=== PATIENT | male | born 2000 | race Caucasian/White ===

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

== ENCOUNTER → 2018-12-29 14:21 | Outpatient (CLI) | payer BC, SELFPAY ==
--- NOTE | 2018-12-29 14:28 | XR_ITS ---
XR knee RT 3V HISTORY: Knee pain and swelling ITS.REASON: CELLUITIS ORDERING PHYSICIAN: Agnieszka Blanton MD PATIENT AGE: 18 years COMPARISON: None FINDINGS: No fracture or dislocation. No lytic or blastic change. Normal mineralization. No significant arthritic changes evident. Mild soft tissue swelling is present in the prepatellar region inferiorly. No foreign body or other significant anomalies are evident. IMPRESSION: Mild soft tissue swelling in the prepatellar region inferiorly otherwise negative
== END ==
PROVIDERS: PCP Family Medicine; Visit Provider Emergency Medicine
DX: L03.115 Cellulitis of right lower limb (principal)
CPT/HCPCS: 73562

== ENCOUNTER 2020-09-04 12:06 | Emergency (ER) | payer BC, SELFPAY ==
[2020-09-04 12:10] VITALS: BP 136/91; PULSE 89; RESP 20; TEMP 36.2; O2SAT 98; BMI 23.6
--- NOTE | 2020-09-04 12:30 | HMH.EDUTC ---
[facility] [place] Clinical Impression: Sinusitis Qualifiers: Sinusitis location: unspecified location Chronicity: unspecified Qualified Code(s): J32.9 - Chronic sinusitis, unspecified Disposition: Home, Self-Care Condition on Discharge: Good Instructions: Sore Throat, Sinusitis, DI for Nausea -- Adult, DI for COVID-19 (Suspected or Confirmed ) Additional Instructions: *Monitor Temp, Over the counter Motrin or Tylenol as directed/as needed Tylenol every 4 hours and Motrin every 6 hours (as long as your family doctor has told you that you can take it) for fever or pain. and straight to ER if unable to lower temp less than 101.0 after medication given *Warm salt water gargles may help to soothe the throat *Throat Lozenges *Warm fluids like tea with honey may help to soothe the throat *Sleep elevated *Humidifier/Vaporizer Follow up immediately if any complications or reactions to medications Your throat swab was sent for culture. Those results are typically sent to your primary care. Be sure to follow up in 2-3 days with your family doctor/primary care physician if no improvement so they can review those result and treat if necessary. If you don?t have a primary care doctor, I recommend you get one but in the mean time, you will have to return to a walk in clinic Follow up IMMEDIATELY for new or worsening symptoms or no Noticeable improvement over the next 48-72 hours. 911 for difficulty breathing or swallowing You were tested for today for COVID19 your test result should be back in the next 24-48 hours, you may call to the [facility] to see if your test results are back in the next 48 hours [phone] [facility] hours are 9am-9pm You was given a handout with instructions for Self Quarantine and Self isolation for while you wait on test results and what to do if they are positive If you are positive the Health Dept will be contacting you also Prescriptions: methylPREDNISolone [Medrol 4mg tab] 4 mg PO DIRECTED #21 tab [facility]: [facility] Azithromycin [Z-Carlos 250mg Tab] 250 mg PO DIRECTED #6 tab Transmission Status: [facility] Ondansetron [Zofran 4mg ODT] 4 mg PO TIDP PRN #9 tab PRN Reason: Nausea Transmission Status: [facility] Referrals: Tito Walton MD [Primary Care Provider] - As needed Time of Disposition: 12:40 Medical Decision Making - Zoran Inquiry Pt receiving controlled substance: No Zoran was queried for this patient: No Vital Signs: 09/04/20 12:10 09/04/20 12:43 Temperature 97.1 F L 97.1 F L Temperature Source Temporal Artery Scan Pulse Rate 89 Pulse Rate [Right Brachial] 89 Respiratory Rate 20 20 Blood Pressure 136/91 H Blood Pressure [Right Arm] 136/91 H Blood Pressure Mean [Right Arm] 106 Blood Pressure Source [Right Arm] Automatic Cuff Blood Pressure Position [Right Arm] Sitting 02 Sat by Pulse Oximetry 98 Oxygen Delivery Method Room Air - Lab Data Lab results reviewed: Yes: I reviewed the patient's lab results. Lab Results 09/04/20 12:44: Influenza Type A Ag Negative, Influenza Type B Ag Negative 09/04/20 12:44: Strep Scn Rapid Clinic Negative Orders (Tests/Meds): ORDERS Category Date Time Status Covid-19 Nasal PCR ([facility]) Routine Lab 09/04/20 12:08 Received Strep Screen Confirmation Stat Micro 09/04/20 12:44 Received Medical Decision Narrative: Patient state that he is allergic to Biaxin but has taken zpack in the past without reaction or complications [facility] [place]PI - General Stated complaint: covid exposure, symptoms Time Seen by Provider: 09/04/20 12:30 Mode of Arrival: Ambulatory Source of Information: Patient Limitations: No Limitations Description of Symptoms (Recalled from Triage Doc. by RN): PATIENT C/O CONGESTION, FEVER, VOMITING, BODY ACHES, AND CHILLS SINCE SATURDAY. WAS RECENTLY EXPOSED TO COVID AND STREP HEENT Symptoms (Recalled from RN notes): Yes Resp
[2020-09-04 12:43] VITALS: BP 136/91; PULSE 89; RESP 20; TEMP 36.2; O2SAT 98
[2020-09-04 12:45] LABS: UTC Influenza A Antigen Negative (Negative); UTC Influenza B Antigen Negative (Negative); UTC Strep Screen (Rapid) Negative (Negative)
--- NOTE | 2020-09-04 20:35 | PC.NURSE ---
PT NOTIFIED OF POSITIVE COVID TEST RESULTS
== END 2020-09-04 12:47 | disposition home or self-care (01) ==
PROVIDERS: Emergency Provider Nurse Practitioner; PCP Family Medicine
DX: U07.1 COVID-19 (principal); J32.9 Chronic sinusitis, unspecified; Z88.1 Allergy status to other antibiotic agents; Z88.5 Allergy status to narcotic agent
CPT/HCPCS: 87804; 87880; 99202; G0463; U0003

== ENCOUNTER → 2020-12-26 17:44 | Outpatient (CLI) | payer BC, SELFPAY ==
[2020-12-26 17:47] LABS: Adenovirus F 40/41, stool Not Detected (NotDetected); Astrovirus Not Detected (NotDetected); Campylobacter Not Detected (NotDetected); Clostridium Difficile A/B, PCR Not Detected (NotDetected); Cryptosporidium Not Detected (NotDetected); Cyclospora Cayetanesis Not Detected (NotDetected); Entamoeba histolytica Not Detected (NotDetected); Enteroaggregative E coli Not Detected (NotDetected); Enteropathogenic E coli Not Detected (NotDetected); Enterotoxigenic E coli Not Detected (NotDetected); Giardia lamblia Not Detected (NotDetected); Norovirus Not Detected (NotDetected); Plesimonas Shigalloides, PCR Not Detected (NotDetected); Rotavirus A Not Detected (NotDetected); Salmonella, PCR Not Detected (NotDetected); Sapovirus Not Detected (NotDetected); Shigella Enterovasive E coli Not Detected (NotDetected); Vibrio Cholerae Not Detected (NotDetected); Vibrio, PCR Not Detected (NotDetected); Yersinia Entercolitica, PCR Not Detected (NotDetected)
[2020-12-26 23:56] LABS: Shiga-like toxin E coli Detected (NotDetected)
== END ==
PROVIDERS: Visit Provider Family Medicine
DX: R19.07 Generalized intra-abdominal and pelvic swelling, mass and lump (principal); B96.23 Unspecified Shiga toxin-producing Escherichia coli [E. coli] [STEC] as the cause of diseases classified elsewhere
CPT/HCPCS: 87507

== ENCOUNTER 2021-03-18 20:00 | Emergency (ER) | payer BC, SELFPAY ==
[2021-03-18 20:02] VITALS: BP 128/94; PULSE 85; RESP 16; O2SAT 98; BMI 22.1
--- NOTE | 2021-03-18 20:46 | CT_ITS ---
PROCEDURE INFORMATION: Exam: CT Head Without Contrast Exam date and time: 03/18/2021 8:46 PM Age: 20 years old Clinical indication: Injury or trauma; Other: Hit head on drywall; Work related; Blunt trauma (contusions or hematomas); Without loss of consciousness; Injury date: 03/15/2021; Injury details: Hit RT forehead on drywall at job site; Additional info: Head injury RT forehead headache now TECHNIQUE: Imaging protocol: Computed tomography of the head without contrast. Radiation optimization: All CT scans at this facility use at least one of these dose optimization techniques: automated exposure control; mA and/or kV adjustment per patient size (includes targeted exams where dose is matched to clinical indication); or iterative reconstruction. COMPARISON: [facility] CT HEAD W/O CONTRAST 02/04/2016 12:07 AM FINDINGS: Brain: Normal. No hemorrhage. Unremarkable white matter. No mass effect. Cerebral ventricles: No ventriculomegaly. Paranasal sinuses: Visualized sinuses are unremarkable. No fluid levels. Mastoid air cells: Visualized mastoid air cells are well aerated. Vasculature: Intraranial artery density is normal. Bones/joints: Unremarkable. No acute fracture. Soft tissues: Unremarkable. IMPRESSION: No acute intracranial abnormality.
--- NOTE | 2021-03-18 20:48 | CT_ITS ---
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 Radiation optimization: All CT scans at this facility use at least one of these dose optimization techniques: automated exposure control; mA and/or kV adjustment per patient size (includes targeted exams where dose is matched to clinical indication); or iterative reconstruction. COMPARISON: [facility] CT CERVICAL SPINE W/O CONT 02/04/2016 12:10 AM FINDINGS: Bones/joints: No acute fracture. Normal alignment. Discs/Spinal canal/Neural foramina: No significant disc protrusion. No severe spinal canal stenosis. No significant neural foraminal narrowing. Lungs: Lung apices are normal. Soft tissues: Unremarkable. IMPRESSION: No acute findings.
--- NOTE | 2021-03-18 22:20 | HMH.EDHA ---
ED Disposition Clinical Impression: Postconcussion syndrome Disposition: Home, Self-Care Condition on Discharge: Good Instructions: DI for Postconcussion Syndrome Additional Instructions: advil/tyenol and see pcp for follow up Referrals: Tito Walton MD [Primary Care Provider] - - Critical Care Critical Care Time: No Attestation: On 03/18/21, the high probability of a clinically significant, sudden or life threatening deterioration of the following system(s) required my full and direct attention, intervention and personal management. The time I documented below is in addition to time spent performing reported procedures but includes the following listed in this critical care notation. Medical Decision Making - Medical Records Medical records reviewed: Yes: I reviewed the patient's medical records. - Zoran Inquiry Pt receiving controlled substance: No Vital Signs: 03/18/21 20:02 Pulse Rate [Right] 85 Respiratory Rate 16 Blood Pressure [Right Arm] 128/94 H Blood Pressure Mean [Right Arm] 105 Blood Pressure Source [Right Arm] Automatic Cuff Blood Pressure Position [Right Arm] Sitting 02 Sat by Pulse Oximetry 98 Oxygen Delivery Method Room Air - Lab Data Lab results reviewed: Yes: I reviewed the patient's lab results. - CT Data CT Scan: Head, C-Spine Time Received: 22:[address] Reviewed: Yes: I have viewed the radiologist's interpretation Preliminary Findings: No Fracture Seen Medical Decision Narrative: see pcp for follow up Headache HPI - General Chief Complaint: Headache Stated Complaint: WC 09 hit hit on Time Seen by Provider: 03/18/21 21:00 Mode of Arrival: Ambulatory Source of Information: Patient, Medical Record Limitations: No Limitations Description of Symptoms (Recalled from ER Triage Doc. by RN): pt states possible concusion after hitting my head about 4 or [address] skin pink warm dry and intact pt reports no loc that he has had an intermittent headache as well as trouble sleeping since sat. pt also has a past hx of a concussion in 2013 - History of Present Illness HPI Narrative: hit head multiple times on saturday and now with headache - pt reports no workman comp Complaint: headache Onset (ago): day(s) Onset description: other (post trauma ) Location: diffuse Severity: moderate Treatments prior to arrival: none - Related Data Home Medications Medication Instructions Recorded Confirmed Cetirizine HCl [Zyrtec] 10 mg PO DAILY 06/06/18 06/06/18 Loratadine [Claritin 10mg 10 mg PO DAILY 12/04/17 12/04/17 Tablet] Previous Rx's Medication Instructions Recorded Mupirocin [Bactroban 2% Ointment 1 applicatio TP BID #1 tube 12/22/18 22gm tube] Sulfamethoxazole/Trimethoprim 1 each PO BID #14 tab 12/22/18 [Bactrim DS tablet] cephALEXin [Keflex 500mg Cap] 500 mg PO TID #30 cap 12/22/18 Azithromycin [Z-Carlos 250mg Tab] 250 mg PO DIRECTED #6 tab 09/04/20 Ondansetron [Zofran 4mg ODT] 4 mg PO TIDP PRN #9 tab 09/04/20 methylPREDNISolone [Medrol 4mg 4 mg PO DIRECTED #21 tab 09/04/20 tab] Allergies Allergy/AdvReac Type Severity Reaction Status Date / Time clarithromycin [From BIAXIN] Allergy Severe Swelling Verified 12/22/18 03:59 of Lip/Tongue/Throat clindamycin [CLINDAMYCIN] Allergy Severe Swelling Verified 12/22/18 03:59 of Lip/Tongue/Throat codeine [CODEINE] Allergy Intermediate Verified 12/22/18 03:59 oseltamivir [From TAMIFLU] Allergy Intermediate I-RASH Verified 12/22/18 03:59 gentamicin [GENTAMICIN] Allergy Unknown Verified 12/22/18 03:59 RED DYE (FOOD) Allergy Severe Swelling Uncoded 01/06/18 19:35 of Lip/Tongue/Throat H History - Hepatitis A Screen Drug use history?: No High risk sexual behaviors?: No History of sexually transmitted infection?: No Currently employed?: No Childcare worker?: No Do you have indoor plumbing?: Yes Do y
[2021-03-18 23:49] VITALS: BP 134/62; PULSE 64; RESP 16; TEMP 36.6
== END 2021-03-18 23:49 | disposition home or self-care (01) ==
PROVIDERS: Emergency Provider Emergency Medicine; PCP Family Medicine
DX: S06.0X0A Concussion without loss of consciousness, initial encounter (principal); W22.01XA Walked into wall, initial encounter; Y92.89 Other specified places as the place of occurrence of the external cause; Z87.891 Personal history of nicotine dependence
CPT/HCPCS: 70450; 72125; 99281

== ENCOUNTER → 2021-06-26 18:00 | Outpatient (CLI) | payer BC, SELFPAY | PROVIDERS: PCP Family Medicine; Visit Provider Nurse Practitioner | DX: Z20.822 Contact with and (suspected) exposure to COVID-19 (principal) | CPT/HCPCS: C9803; U0003; U0005 ==

== ENCOUNTER 2022-11-07 15:17 | Emergency (ER) | payer BC, SELFPAY ==
--- NOTE | 2022-11-07 15:35 | EXP.UTC ---
Discharge Plan Disposition Patient Disposition: Home, Self-Care Condition: Good Prescriptions Prescriptions: New methylprednisolone 4 mg Tablets,Dose Pack 4 mg PO DIRECTED Qty: 21 0RF [id number] [Bromfed DM] 2-30-10 mg/5 mL Syrup 5 ml PO Q6H PRN (Reason: Cough) Qty: 240 0RF amoxicillin-pot clavulanate 875-125 mg Tablet 1 tab PO Q12H Qty: 20 0RF No Action sulfamethoxazole-trimethoprim 1 EACH tablet 1 each PO BID Qty: 14 0RF cephalexin 500 MG capsule 500 mg PO TID Qty: 30 0RF mupirocin 22 GM ointment 1 applicatio TP BID Qty: 1 0RF azithromycin 250 MG tablet 250 mg PO DIRECTED Qty: 6 0RF Rx Instructions: Take two (2) tablets on day #1, then one (1) tablet day #2 thru #5 methylprednisolone 4 MG tablet 4 mg PO DIRECTED Qty: 21 0RF Rx Instructions: Take as directed on package instructions ondansetron 4 MG tablet,disintegrating 4 mg PO TIDP PRN (Reason: Nausea) Qty: 9 0RF cetirizine [Zyrtec] 10 MG tablet 10 mg PO DAILY loratadine 10 MG tablet 10 mg PO DAILY Referrals Follow up/Referrals: Tito Walton MD [Primary Care Provider] - See instructions Activity Restrictions/Add. Instructions Additional Instructions/Restrictions: Drink plenty of fluids. Take tylenol or ibuprofen for pain or fever. Take the medications as directed. Follow up with your regular doctor. GO TO THE ER FOR ANY WORSENING SYMPTOMS Clinical Impressions Clinical Impression: Sinusitis Instructions Patient Instructions: Sinusitis, DI for Sinusitis Discharge ED Provider: Hector Nava [facility] General Stated complaint: sore throat Time Seen by Provider: 11/07/22 15:35 History of Present Illness Provider Complaint: He states that for the past 1 week he has had worsening sinus congestion. He has had low grade fever and malaise also. Related Data Home Medications Medication Instructions Recorded Confirmed cetirizine 10 mg tablet (Zyrtec) 10 mg PO DAILY Allergy symptoms 12/04/17 12/04/17 loratadine 10 mg tablet 10 mg PO DAILY Allergy symptoms 12/04/17 12/04/17 Previous Rx's Medication Instructions Recorded cephalexin 500 mg capsule 500 mg PO TID #30 caps 12/22/18 mupirocin 2 % topical ointment 1 applicatio TP BID #1 tube 12/22/18 sulfamethoxazole 800 1 each PO BID #14 tabs 12/22/18 mg-trimethoprim 160 mg tablet azithromycin 250 mg tablet 250 mg PO DIRECTED #6 tabs 09/04/20 methylprednisolone 4 mg tablet 4 mg PO DIRECTED #21 tabs 09/04/20 ondansetron 4 mg disintegrating 4 mg PO TIDP PRN Nausea #9 tabs 09/04/20 tablet amoxicillin 875 mg-potassium 1 tab PO Q12H #20 tabs 11/07/22 clavulanate 125 mg tablet trdgnkbtcvqdinb-kefbkzfyvgvqcdh-QG 5 ml PO Q6H PRN Cough #240 mL 11/07/22 2 mg-30 mg-10 mg/5 mL oral syrup (Bromfed DM) methylprednisolone 4 mg tablets in 4 mg PO DIRECTED #21 tabs 11/07/22 a dose pack Allergies Allergy/AdvReac Type Severity Reaction Status Date / Time clarithromycin [From BIAXIN] Allergy Severe Swelling Verified 11/07/22 15:41 of Lip/Tongue/Throat clindamycin [CLINDAMYCIN] Allergy Severe Swelling Verified 11/07/22 15:41 of Lip/Tongue/Throat codeine [CODEINE] Allergy Intermediate Verified 11/07/22 15:41 oseltamivir [From TAMIFLU] Allergy Intermediate I-RASH Verified 11/07/22 15:41 gentamicin [GENTAMICIN] Allergy Unknown Verified 11/07/22 15:41 RED DYE (FOOD) Allergy Severe Swelling Uncoded 01/06/18 19:35 of Lip/Tongue/Throat [facility] Disclaimer: The information contained in this section may have been updated after the patient was seen, as this information can be updated by other users. Social History Smoking Status: Former smoker alcohol intake: never substance use type: denies use current occupational status: other Travel in the last 8 weeks: None ROS Obtained: Y
[2022-11-07 15:39] VITALS: BP 110/82; PULSE 87; RESP 18; TEMP 36.6; O2SAT 98; BMI 26.3
[2022-11-07 15:57] VITALS: BP 110/82; PULSE 87; RESP 18; TEMP 36.6
== END 2022-11-07 15:59 | disposition home or self-care (01) ==
PROVIDERS: Emergency Provider Nurse Practitioner Family; PCP Family Medicine
DX: J01.90 Acute sinusitis, unspecified (principal); R50.9 Fever, unspecified; R53.81 Other malaise; Z87.891 Personal history of nicotine dependence
CPT/HCPCS: 99212; 99214; G0463

== ENCOUNTER 2023-05-16 15:36 | Outpatient (CLI) | payer BC, SELFPAY ==
[2023-05-16] VITALS (8 sets, daily range): BP systolic 109–138; BP diastolic 54–98; PULSE 62–86; RESP 18; TEMP 36.3; O2SAT 99–100; BMI 21.6
[2023-05-16 16:02] LABS: Basophils # 0.1 K/mm3 (0-0.2); Basophils % 0.2 % (0.1-2.0); Eosinophils # 0.1 K/mm3 (0.0-0.4); Eosinophils % 0.2 % (0.1-12.0); Lymphocytes # 0.5 K/mm3 (0.7-4.5); Lymphocytes % 2.2 % (10-50); Mean Corpuscular HGB Conc 34.4 g/dL (31.8-35.4); Mean Corpuscular Hemoglobin 32.9 pg (27.0-31.2); Mean Corpuscular Volume 95.8 fl (80-94); Mean Platelet Volume 7.8 fl (7.4-10.4); Monocytes # 0.7 K/mm3 (0.1-1.0); Monocytes % 3.4 % (1.7-9.3); Neutrophils # 20.4 K/mm3 (1.8-7.8); Neutrophils % 93.9 % (37.0-80.0); Platelet Count 273 K/mm3 (142-424); Red Blood Count 5.74 M/mm3 (4.60-6.20)
[2023-05-16 16:08] LABS: Chloride 102 mmol/L (98-107); Potassium 4.6 mmoL/L (3.5-5.1); Sodium 143 mmol/L (136-145); White Blood Count 21.8 K/mm3 (4.8-10.8)
[2023-05-16 16:09] LABS: Hemoglobin 18.9 g/dL (14.1-18.0)
[2023-05-16 16:11] LABS: Alanine Aminotransferase 34 U/L (12-78); Alkaline Phosphatase 79 U/L (38-126); Anion Gap 21.6 mEq/L (5-15); Aspartate Amino Transferase 36 U/L (17-59); Bilirubin,Total 1.4 mg/dl (0.2-1.3); Blood Urea Nitrogen 25 mg/dl (9-20); Carbon Dioxide 24 mmol/L (22.0-30.0); Creatinine Clearance Estimated 58 mL/min (50-200); Estimated Glomerular Filt Rate 47 ml/min (>60); GFR (African American) 56 ML/MIN (>60); MANUAL DIFFERENTIAL MANUAL DIFFERENTIAL (MANUAL DIFF); Total Protein,Serum 10.3 g/dl (6.3-8.2)
[2023-05-16 16:12] LABS: Calcium 10.9 mg/dl (8.4-10.2); Glucose 178 mg/dl (74-100)
[2023-05-16 16:13] LABS: Lymphocytes % 2 % (10-50); Monocytes % 5 % (2-9); Neutrophils % 92 % (42-76); Total Cells Counted 100
[2023-05-16 16:14] LABS: Platelet Estimate Normal; RBC Morphology Normal
[2023-05-16 16:23] LABS: Albumin Level > 6.0 g/dl (3.5-5.0); Albumin/Globulin Ratio 1.4 (1.1-1.8); Globulin 4.3 g/dL (1.3-3.2)
== END 2023-05-16 18:56 | disposition home or self-care (01) ==
LOC: LAB 15:37 → INF 15:39
PROVIDERS: PCP Family Medicine; Visit Provider Physician Assistant
DX: K52.9 Noninfective gastroenteritis and colitis, unspecified (principal); E86.0 Dehydration
CPT/HCPCS: 80053; 85007; 85025; 96360; 96361; 96367; 96375; J1956; J2405

== ENCOUNTER 2023-11-10 18:13 | Emergency (ER) | payer BC, SELFPAY ==
[2023-11-10 18:50] VITALS: BP 147/93; PULSE 72; RESP 20; TEMP 36.8; O2SAT 100; BMI 25.7
--- NOTE | 2023-11-10 19:28 | EXP.UTC ---
Discharge Plan Disposition Patient Disposition: Home, Self-Care Condition: Good Prescriptions Prescriptions: New methylprednisolone [Medrol (Carlos)] 4 mg tablets,dose pack See Rx Instructions .Route .COMPLEX 6 Days Qty: 21 0RF Rx Instructions: taper pack; amoxicillin-pot clavulanate 875-125 mg Tablet 1 tab PO Q12H Qty: 20 0RF No Action promethazine [Phenergan] 25 mg Tablet 25 mg PO Q6H PRN (Reason: nausea/vomiting) Referrals Follow up/Referrals: Tito Walton MD [Primary Care Provider] - See instructions Activity Restrictions/Add. Instructions Additional Instructions/Restrictions: *Monitor Temp, Over the counter Motrin or Tylenol as directed/as needed Tylenol every 4 hours and Motrin every 6 hours (as long as your family doctor has told you that you can take it) for fever or pain. and straight to ER if unable to lower temp less than 101.0 after medication given Take medication as prescribed *Sleep elevated *Humidifier/Vaporizer Follow up IMMEDIATELY for new or worsening symptoms or no Noticeable improvement over the next 48-72 hours. 911 for difficulty breathing or swallowing Clinical Impressions Clinical Impression: Sinusitis Stand Alone Forms Stand Alone Forms: Work/School Release Instructions Patient Instructions: Middle Ear Infection, DI for Sinusitis Discharge ED Provider: Anina Campbell [facility] General Stated complaint: Cough,congestion,bilateral earache Mode of Arrival: Ambulatory Source of Information: Patient Limitations: No Limitations Time Seen by Provider: 11/10/23 19:28 Description of Symptoms (Recalled from Triage Doc. by RN): PATIENT C/O SINUS CONGESTION, COUGH, HEADACHE, AND BILATERAL EAR PAIN X 2 DAYS HEENT Symptoms (Recalled from RN notes): Yes Resp Symptoms (Recalled from RN notes): Yes Skin Symptoms (Recalled from RN notes): No MS Symptoms (Recalled from RN notes): No Functional Status (Recalled from RN notes): WNL History of Present Illness Provider Complaint: Patient states that he has been having sinus pain and pressure, bilateral ear pain and pressure, cough and headache States that he has been taking OTC medications but they havent helped much so this evening he came in to get checked Related Data Home Medications Medication Instructions Recorded Confirmed promethazine 25 mg tablet 25 mg PO Q6H PRN nausea/vomiting 05/16/23 05/16/23 Previous Rx's Medication Instructions Recorded amoxicillin 875 mg-potassium 1 tab PO Q12H #20 tabs 11/10/23 clavulanate 125 mg tablet methylprednisolone 4 mg tablets in See Rx Instructions .Route 11/10/23 a dose pack (Medrol (Carlos)) .COMPLEX 6 days #21 tabs Allergies Allergy/AdvReac Type Severity Reaction Status Date / Time clarithromycin [From BIAXIN] Allergy Severe Swelling Verified 05/16/23 15:58 of Lip/Tongue/Throat clindamycin [CLINDAMYCIN] Allergy Severe Swelling Verified 05/16/23 15:58 of Lip/Tongue/Throat codeine [CODEINE] Allergy Intermediate Verified 05/16/23 15:58 oseltamivir [From TAMIFLU] Allergy Intermediate I-RASH Verified 05/16/23 15:58 gentamicin [GENTAMICIN] Allergy Unknown Verified 05/16/23 15:58 RED DYE (FOOD) Allergy Severe Swelling Uncoded 01/06/18 19:35 of Lip/Tongue/Throat Worker's Comp Is this a Worker's Comp case?: No [facility] Disclaimer: The information contained in this section may have been updated after the patient was seen, as this information can be updated by other users. Medical History (Updated 11/10/23 @ 19:33 by Annia Campbell APRN) Kidney stone Migraine Surgical History H/O endoscopy History of tonsillectomy Family History (Updated 05/16/23 @ 15:52 by Venkat Mayo RN) Other Family history of hypertension Family history of myocardial infarction Social History (Updated 05/16/23 @ 15:53 by Venkat Mayo RN) Smoking Status: Former smoker alcohol intake: never substance use type: denies use current occupational status: other Travel in the last 8 weeks: None ROS Obtained: Yes All systems reviewed & no additional complaints except as documented and Yes Systems reviewed as appropriate & no additional complaints except as documented Constitutional Constitutional: Reports system reviewed and no additional complaints, except as documented, Reports as per HPI and Reports headache(s) ENT Ears, Nose, Mouth, and Throat: Reports system reviewed and no additional complaints, except as documented, Reports as per HPI, Reports otalgia, Reports headache(s), Reports sinus pain and Reports sinus pressure Cardiovascular Cardiovascular: Reports system reviewed and no additional complaints, except as documented and Reports as per HPI Respiratory Respiratory: Reports system reviewed and no additional complaints, except as documented, Reports as per HPI and Reports cough Gastrointestinal Gastrointestingal: Reports system reviewed and no additional complaints, except as documented and as per HPI Neurologic Neurologic: Reports headache(s) Physical Exam General General appearance: alert and in no apparent distress ENT ENT exam: Present mucous membranes moist Expanded ENT Exam TM/Canal exam: Bilateral TM: erythema and bulging Nose exam: Present sinus tenderness Respiratory Respiratory exam: Present normal lung sounds bilaterally; Absent respiratory distress or wheezes Cardiovascular Cardiovascular exam: Present regular rate, normal rhythm and normal heart sounds Neurological Exam Neurological exam: Present alert, oriented X3 and normal gait Medical Decision Making Zoran Inquiry Pt receiving controlled substance: No Zoran was queried for this patient: No Vital Signs: 11/10/23 18:50 Temperature 98.2 F Temperature Source Oral Pulse Rate [Left Brachial] 72 Respiratory Rate 20 Blood Pressure [Left Arm] 147/93 H Blood Pressure Mean [Left Arm] 111 Blood Pressure Source [Left Arm] Automatic Cuff Blood Pressure Position [Left Arm] Sitting 02 Sat by Pulse Oximetry 100 Oxygen Delivery Method Room Air
[2023-11-10 19:35] VITALS: BP 147/93; PULSE 72; RESP 20; TEMP 36.8; O2SAT 100
== END 2023-11-10 19:41 | disposition home or self-care (01) ==
LOC: ER 18:17 → UTC 18:20
PROVIDERS: Emergency Provider Nurse Practitioner; PCP Family Medicine
DX: J01.90 Acute sinusitis, unspecified (principal); H66.93 Otitis media, unspecified, bilateral; R51.9 Headache, unspecified; R05.9 Cough, unspecified; R09.81 Nasal congestion
CPT/HCPCS: 99212; 99214; G0463

== ENCOUNTER 2024-03-15 11:32 | Emergency (ER) | payer BC, SELFPAY ==
[2024-03-15 12:15] VITALS: BP 130/91; PULSE 72; RESP 20; TEMP 36.5; O2SAT 99; BMI 26.8
--- NOTE | 2024-03-15 12:33 | ED_ITS ---
Discharge Plan Disposition Patient Disposition: Home, Self-Care Condition: Good Prescriptions Prescriptions: New methylprednisolone [Medrol (Carlos)] 4 mg tablets,dose pack See Rx Instructions .Route .COMPLEX 6 Days Qty: 21 0RF Rx Instructions: taper pack; amoxicillin-pot clavulanate 875-125 mg Tablet 1 tab PO Q12H Qty: 20 0RF Referrals Follow up/Referrals: Tito Walton MD [Primary Care Provider] - See instructions Activity Restrictions/Add. Instructions Additional Instructions/Restrictions: *Monitor Temp, Over the counter Motrin or Tylenol as directed/as needed Tylenol every 4 hours and Motrin every 6 hours (as long as your family doctor has told you that you can take it) for fever or pain. and straight to ER if unable to lower temp less than 101.0 after medication given *Warm salt water gargles may help to soothe the throat *Throat Lozenges? *Warm fluids like tea with honey may help to soothe the throat? *Sleep elevated *Humidifier/Vaporizer Over the counter Dye free cough medication Your throat swab was sent for culture. Those results are typically sent to [facility] primary care. Be sure to follow up in 2-3 days with your family doctor/primary care physician if no improvement so they can review those result and treat if necessary. If you don?t have a primary care doctor, I recommend you get one but in the mean time, you will have to return to a walk in clinic Follow up IMMEDIATELY for new or worsening symptoms or no Noticeable improvement over the next 48-72 hours. 911 for difficulty breathing or swallowing You were tested for today for COVID19 your test result should be back in the next 24 hours, you may check your results on the [facility] [employer] [facility] Clinical Impressions Clinical Impression: Sinusitis Instructions Patient Instructions: DI for Sinusitis, Sinusitis Print Language Print Language: Faroese Discharge ED Provider: Annia Campbell [facility] HPI General Stated complaint: sore throat, fever Mode of Arrival: Ambulatory Source of Information: Patient Limitations: No Limitations Time Seen by Provider: 03/15/24 12:33 Description of Symptoms (Recalled from Triage Doc. by RN): PATIENT C/O FEVER, CHILLS, CONGESTION, COUGH, HEADACHE AND SORE THROAT SINCE LAST SATURDAY HEENT Symptoms (Recalled from RN notes): Yes Resp Symptoms (Recalled from RN notes): Yes Skin Symptoms (Recalled from RN notes): No MS Symptoms (Recalled from RN notes): No Functional Status (Recalled from RN notes): WNL History of Present Illness Provider Complaint: Patient states that he has been having sinus pain and pressure, sore throat, cough, fever for the first few days, headache and over all not feeling well States today he was still not feeling any better so he came in to get checked Related Data Previous Rx's ?Medication ?Instructions ?Recorded amoxicillin 875 mg-potassium 1 tab PO Q12H #20 tabs 03/15/24 clavulanate 125 mg tablet methylprednisolone 4 mg tablets in See Rx Instructions .Route 03/15/24 a dose pack (Medrol (Carlos)) .COMPLEX 6 days #21 tabs Allergies Allergy/AdvReac Type Severity Reaction Status Date / Time clarithromycin [From BIAXIN] Allergy Severe Swelling Verified 05/16/23 15:58 of Lip/Tongue/Throat clindamycin [CLINDAMYCIN] Allergy Severe Swelling Verified 05/16/23 15:58 of Lip/Tongue/Throat codeine [CODEINE] Allergy Intermediate Verified 05/16/23 15:58 oseltamivir [From TAMIFLU] Allergy Intermediate I-RASH Verified 05/16/23 15:58 gentamicin [GENTAMICIN] Allergy Unknown Verified 05/16/23 15:58 RED DYE (FOOD) Allergy Severe Swelling Uncoded 01/06/18 19:35 of Lip/Tongue/Throat Worker's Comp Is this a Worker's Comp case?: No [facility] Disclaimer: The information contained in this section may have been updated after the patient was seen, as this information can be updated by other users. Medical History (Updated 03/15/24 @ 12:42 by Annia Campbell APRN) Kidney stone Migraine Surgical History H/O endoscopy History of tonsillectomy Family History (Updated 05/16/23 @ 15:52 by Venkat Mayo RN) Other Family history of hypertension Family history of myocardial infarction Social History (Updated 05/16/23 @ 15:53 by Venkat Mayo RN) Smoking Status: Former smoker alcohol intake: never substance use type: denies use current occupational status: other Travel in the last 8 weeks: None ROS Obtained: Yes All systems reviewed & no additional complaints except as documented and Yes Systems reviewed as appropriate & no additional complaints except as documented Constitutional Constitutional: Reports system reviewed and no additional complaints, except as documented, Reports as per HPI, Reports body ache, Reports chills, Reports fever(s) and Reports headache(s) ENT Ears, Nose, Mouth, and Throat: Reports system reviewed and no additional complaints, except as documented, Reports as per HPI, Reports headache(s), Repor ts sinus pain, Reports sinus pressure and Reports sore throat Cardiovascular Cardiovascular: Reports system reviewed and no additional complaints, except as documented and Reports as per HPI Respiratory Respiratory: Reports system reviewed and no additional complaints, except as documented, Reports as per HPI, Denies shortness of breath, Denies chest congestion and Reports cough Gastrointestinal Gastrointestingal: Reports system reviewed and no additional complaints, except as documented and as per HPI Neurologic Neurologic: Reports headache(s) Physical Exam General General appearance: alert and in no apparent distress ENT ENT exam: Present mucous membranes moist Expanded ENT Exam Nose exam: Present sinus tenderness Chest Chest inspection: Present normal inspection; Absent symmetric chest wall rise or tenderness Respiratory Respiratory exam: Present normal lung sounds bilaterally; Absent respiratory distress or wheezes Cardiovascular Cardiovascular exam: Present regular rate, normal rhythm and normal heart sounds Neurological Exam Neurological exam: Present alert, oriented X3 and normal gait Medical Decision Making Zoran Inquiry Pt receiving controlled substance: No Zoran was queried for this patient: No Vital Signs: 03/15/24 12:15 Temperature 97.7 F Temperature Source Oral Pulse Rate [Left Brachial] 72 Respiratory Rate 20 Blood Pressure [Left Arm] 130/91 H Blood Pressure Mean [Left Arm] 104 Blood Pressure Source [Left Arm] Automatic Cuff Blood Pressure Position [Left Arm] Sitting 02 Sat by Pulse Oximetry 99 Oxygen Delivery Method Room Air Lab Data Lab results reviewed: Yes I reviewed the patient's lab results.
[2024-03-15 12:38] LABS: UTC Strep Screen (Rapid) Negative (Negative)
[2024-03-15 12:43] VITALS: BP 130/91; PULSE 72; RESP 20; TEMP 36.5; O2SAT 99
[2024-03-15 14:55] LABS: Coronavirus 19, PCR Not Detected (NotDetected); Influenza A, PCR Not Detected (NotDetected); Influenza B, PCR Not Detected (NotDetected)
== END 2024-03-15 12:46 | disposition home or self-care (01) ==
PROVIDERS: Emergency Provider Nurse Practitioner; PCP Family Medicine
DX: J01.90 Acute sinusitis, unspecified (principal); R07.0 Pain in throat; R05.9 Cough, unspecified; R50.9 Fever, unspecified
CPT/HCPCS: 87636; 87880; 99212; 99214; G0463